=== PATIENT | male | born 1965 | race Caucasian/White ===

== ENCOUNTER 2017-03-11 16:22 | Inpatient (IN) | payer BC, OTHER ==
[~2017-03-11] VITALS: Ht 175.3 cm; Wt 111.1 kg
[2017-03-11 16:25] VITALS: BP 154/87; PULSE 62; RESP 16; TEMP 98.3; O2SAT 97
--- NOTE | 2017-03-11 16:25 | NUR ---
Placed in room 1 . Placed on security monitor, blood pressure machine and pulse oximeter. To gown for exam. Side rails up. Report given to Mary FOSTER.
--- NOTE | 2017-03-11 16:45 | NUR ---
Note siobhan in [facility] - 03/11/17 at 1645 by YOGESH Placed in room 1 . Placed on lastex thread winder, blood pressure machine and pulse oximeter. To gown for exam. Side rails up. Report given to Mary FOSTER.
--- NOTE | 2017-03-11 16:45 | NUR ---
PER PATIENT HE STARTED FEELING PRESSURE ON HIS CHEST A COUPLE OF HOURS AGO WHILE WATCHING.PATIENT STILL COMPLAINING OF PRESSURE ON THE CHEST STATED "I DON'T KNOW IF THIS IS JUST GAS".NO RESPIRATORY DISTRESS.NO COMPLAIN/INJURIES PER PATIENT OR NOTED
--- NOTE | 2017-03-11 16:50 | NUR ---
ER at bedside examining patient.
[2017-03-11 16:59] LABS: BASOPHILS # (AUTO) 0.1 K/uL (0.0-0.2); BASOPHILS % (AUTO) 0.8 % (0.0-2.0); EOSINOPHILS # (AUTO) 0.3 K/uL (0.0-0.4); EOSINOPHILS % (AUTO) 2.9 % (0.0-4.0); HEMATOCRIT 43.2 % (36-54); HEMOGLOBIN 14.2 g/dL (14.0-18.0); LYMPHOCYTES # (AUTO) 2.7 K/uL (1.0-5.5); LYMPHOCYTES % (AUTO) 24.3 % (20.5-51.5); MEAN CORPUSCULAR HEMOGLOBIN 29 pg (27-31); MEAN CORPUSCULAR HGB CONC 33 % (32-36); MEAN CORPUSCULAR VOLUME 88 fL (79.0-98.0); MONOCYTES # (AUTO) 0.9 K/uL (0.0-1.0); MONOCYTES % (AUTO) 7.9 % (1.7-9.3); NEUTROPHILS # (AUTO) 7.2 K/uL (1.8-7.7); NEUTROPHILS % (AUTO) 64.1 % (40.0-70.0); PLATELET COUNT (AUTO) 371 K/uL (130-430); RED BLOOD CELL COUNT(AUTO) 4.89 MIL/uL (4.2-6.2); RED CELL DISTRIBUTION WIDTH 13.2 % (9.0-15.0); WHITE BLOOD COUNT (AUTO) 11.2 K/uL (4.8-10.8)
[2017-03-11] MEDS ORDERED: NITROGLYCERIN 0.4 MG TAB.SUBL SL ONE (17:00)
[2017-03-11] MEDS ORDERED: MAG HYDROX/AL HYDROX/SIMETH 30 ML, LIDOCAINE VISCOUS 2% 15ML (PO) 10 ML, BELLADONNA ALK... PO ONE ×3 (17:00)
[2017-03-11 17:03] LABS: CALCIUM 9.3 mg/dL (8.4-11.0); CREATININE 0.89 mg/dL (0.55-1.30); POTASSIUM 4.1 mmol/L (3.5-5.1)
[2017-03-11 17:05] LABS: PROTHROMBIN TIME 11.2 SECS (9.5-12.5)
[2017-03-11 17:08] LABS: ALBUMIN 3.9 g/dL (3.4-4.8); TOTAL BILIRUBIN 0.3 mg/dL (0.0-1.0); TOTAL PROTEIN, SERUM 7.7 g/dL (6.4-8.3)
--- NOTE | 2017-03-11 17:42 | NUR ---
PATIENT STATED "I FEEL BETTER NOW"
[2017-03-11] MEDS ORDERED: LISI-209 PO (18:11)
[2017-03-11] MEDS ORDERED: ASA81 PO (18:12)
[2017-03-11] MEDS ORDERED: NICO1PAT11 TP (18:13)
[2017-03-11] MEDS ORDERED: TICA90TA PO (18:14)
[2017-03-11] MEDS ORDERED: LIP80 PO (18:15)
--- NOTE | 2017-03-11 19:19 | NUR ---
Report given to KRISTIN Lewis and endorsed all care.
--- NOTE | 2017-03-11 19:25 | NUR ---
Received patient alert,awake and oriented. No acute distress or SOB noted. Denies any pain at this time. Will continue to monitor.
--- NOTE | 2017-03-11 19:35 | NUR ---
ADMIT NOTE Received pt from ER to the floor with a diagnosis of CHEST PAIN. Admission process initiated. patient oriented to pain management, safety and call light-teach back done.
--- NOTE | 2017-03-11 19:40 | NUR ---
Patient will be admitted under the care of Dr. Dillard . Admitted to Telemetry unit. Will go to room 110A. Belongings list completed. Summary report printed. Report will be given at bedside.
--- NOTE | 2017-03-11 19:45 | NUR ---
Initial PM Notes Pt is resting comfortably in bed and denies chest pain or discomfort at this time. Pt's is at the bedside. Plan of care was discussed with pt and his and both verbalized understanding. Fall and safety precautions are in place. Call light is with pt. Bed is in the lowest and locked positions. Pt was instructed to call for assistance as needed and pt verbalized understanding. Will continue to monitor pt.
--- NOTE | 2017-03-11 19:47 | NUR ---
CONSULTATION PAGED REASON FOR CONSULTATION:CHEST PAIN WAS CONSULT CALLED?Y PERSON WHO WAS NOTIFIED:OLY CONSULTING PHYSICIAN:KYRIE ANGELA ([employer]) TEST CELL TECHNICIAN SPECIALTY:CARDIO TEST CELL TECHNICIAN PHONE NUMBER:[phone]
[2017-03-11 20:00] VITALS: BP 130/75; PULSE 57; RESP 18; TEMP 97; O2SAT 96
--- NOTE | 2017-03-11 20:15 | NUR ---
Dr. Dillard Pt was seen by Dr. Dillard.
[2017-03-11] MEDS ORDERED: NITROGLYCERIN 0.4 MG TAB.SUBL SL PRN (20:30)
[2017-03-11] MEDS: METOPROLOL TARTRATE 25 MG TABLET PO SCH (21:00)
--- NOTE | 2017-03-11 22:00 | NUR ---
Rounds Pt is resting comfortably in bed and watching TV. Call light is with pt.
[2017-03-11] MEDS ORDERED: COMMUNICATION ORDER XX ONE (22:45)
--- NOTE | 2017-03-12 | NUR ---
Rounds Pt is sleeping comfortably in bed. Call light is with pt. playground monitor is showing SB with HR in the low 50's.
[2017-03-12 01:40] VITALS: BP 118/60; PULSE 57; RESP 18; TEMP 97.3; O2SAT 96
--- NOTE | 2017-03-12 02:00 | NUR ---
Rounds Pt is resting comfortably in bed. No resp distress noted.
--- NOTE | 2017-03-12 04:00 | NUR ---
Rounds Pt is sleeping comfortably in bed. Call light is with pt.
[2017-03-12 04:58] VITALS: BP 113/70; PULSE 60; RESP 17; TEMP 97.2; O2SAT 98
--- NOTE | 2017-03-12 06:30 | NUR ---
Closing Note Pt is resting comfortably in bed and call light is with pt. All pt's needs were attended to. No fall or injury noted this shift. Will endorse to day shift nurse.
--- NOTE | 2017-03-12 06:45 | NUR ---
Home Medication to Pharmacy Pt's home medication Ticagrelor (Brilinta) 1 bottle was taken to Pharmacy. Receipt is with pt.
[2017-03-12 07:21] LABS: BASOPHILS # (AUTO) 0.1 K/uL (0.0-0.2); BASOPHILS % (AUTO) 0.5 % (0.0-2.0); EOSINOPHILS # (AUTO) 0.3 K/uL (0.0-0.4); EOSINOPHILS % (AUTO) 3.1 % (0.0-4.0); HEMATOCRIT 43.5 % (36-54); HEMOGLOBIN 14.3 g/dL (14.0-18.0); LYMPHOCYTES # (AUTO) 2.1 K/uL (1.0-5.5); LYMPHOCYTES % (AUTO) 18.8 % (20.5-51.5); MEAN CORPUSCULAR HEMOGLOBIN 29 pg (27-31); MEAN CORPUSCULAR HGB CONC 33 % (32-36); MEAN CORPUSCULAR VOLUME 89 fL (79.0-98.0); MONOCYTES # (AUTO) 0.6 K/uL (0.0-1.0); MONOCYTES % (AUTO) 5.6 % (1.7-9.3); NEUTROPHILS # (AUTO) 8.2 K/uL (1.8-7.7); PLATELET COUNT (AUTO) 342 K/uL (130-430); RED BLOOD CELL COUNT(AUTO) 4.88 MIL/uL (4.2-6.2); RED CELL DISTRIBUTION WIDTH 13.3 % (9.0-15.0); WHITE BLOOD COUNT (AUTO) 11.3 K/uL (4.8-10.8)
[2017-03-12 07:26] LABS: ALBUMIN 3.8 g/dL (3.4-4.8); CALCIUM 9.4 mg/dL (8.4-11.0); CREATININE 0.9 mg/dL (0.55-1.30); POTASSIUM 4.1 mmol/L (3.5-5.1); TOTAL BILIRUBIN 0.5 mg/dL (0.0-1.0); TOTAL PROTEIN, SERUM 7.4 g/dL (6.4-8.3)
[2017-03-12 08:00] VITALS: BP 159/92; PULSE 67; RESP 18; TEMP 97.7; O2SAT 96
--- NOTE | 2017-03-12 08:00 | NUR ---
Initial Note Patient A/O x4. Respirations even and unlabored. IV access patent. Denies chest pain at this time. Patient ambulatory with steady gait. Use of call light reviewed with patient. Encouraged patient to call for assistance when needed. Fall and safety precautions in place.
[2017-03-12] MEDS ORDERED: ATORVASTATIN 20 MG TABLET PO SCH (09:00)
[2017-03-12] MEDS ORDERED: LISINOPRIL 5 MG TABLET PO SCH (09:00)
[2017-03-12] MEDS ORDERED: ASPIRIN 81 MG TAB.CHEW PO SCH (09:00)
[2017-03-12] MEDS ORDERED: PANTOPRAZOLE SODIUM 40 MG TAB PO SCH (09:00)
[2017-03-12] MEDS ORDERED: NICOTINE 21 MG/24 HR PATCH.TD24 TD SCH (09:00)
[2017-03-12] MEDS: BRILINTA 90 MG PO SCH ×2 (09:37→20:17)
[2017-03-12] MEDS: METOPROLOL TARTRATE 25 MG TABLET PO SCH ×2 (09:38→20:17)
--- NOTE | 2017-03-12 10:00 | NUR ---
Notes Plan of care reviewed with patient and at bedside.
[2017-03-12 11:32] VITALS: BP 133/71; PULSE 61; RESP 16; TEMP 97.2; O2SAT 94
--- NOTE | 2017-03-12 12:00 | NUR ---
Notes ECHO has been completed in room. No acute distress noted.
--- NOTE | 2017-03-12 12:11 | NUR ---
CONSULT CARDIO UNSTABLE ANGINA DR CM IS [employer] [phone] S/[facility] OFFICE @ [id number]
[2017-03-12 15:31] VITALS: BP 133/66; PULSE 54; RESP 17; TEMP 96.4; O2SAT 96
--- NOTE | 2017-03-12 15:39 | NUR ---
Notes Patient sleeping at this time. at bedside. Encouraged patient's to call for assistance if any is needed.
--- NOTE | 2017-03-12 19:04 | NUR ---
Closing Notes Patient needs met throughout shift. Hourly rounds completed. Will continue to monitor until patient care is endorsed to oncoming shift nurse.
[2017-03-12 20:00] VITALS: BP 140/80; PULSE 66; RESP 16; TEMP 97.1; O2SAT 97
--- NOTE | 2017-03-12 20:00 | NUR ---
PM round Pt awake alert oriented x 4. Clear speech. Pt well aware of current medication and pt requesting to be discharge home. Educated pt that Dr. knight will be doing rounds. at bedside. Pt noted ambulating in the room, steady gait noted. IV noted on the right AC 20g. saline locked. Will continue to monitor
--- NOTE | 2017-03-12 20:32 | NUR ---
MD Rounds Pt was seen by Dr. Mane.
--- NOTE | 2017-03-12 22:21 | NUR ---
D/C Patient Patient given medication reconciliation form and D/C instructions. Exit Care smoking cessation provided. Patient verbalized understanding. MD discussed with patient the results and treatment provided. Ambulatory with steady gait for discharge to home. Patient in stable condition, ID band removed. IV catheter removed, intact and dressing applied, no active bleeding. No Rx of given. Patient educated on pain management. All belongings sent with patient.
--- NOTE | 2017-03-13 13:34 | NUR ---
Discharge Follow Up Phone Call OUTPLACEMENT CONSULTANT phoned patient, , but patient was at the doctor's office and requested a call later. OUTPLACEMENT CONSULTANT phoned patient later. Patient stated he was doing well. He had received diet instructions from his PCP. OUTPLACEMENT CONSULTANT discussed with patient further. Patient will make a follow up appointment with Dr Fournier (cardio) today for two to three weeks as indicated in Dr Fournier's consult notes. Patient had no further questions or concerns.
== END 2017-03-12 22:21 | disposition home or self-care (01) | DRG 392 ==
LOC: SED 16:22 → STU 19:16
PROVIDERS: ATTEND Internal Medicine Hospice and Palliative Medicine
DX: K21.9 Gastro-esophageal reflux disease without esophagitis (principal); I25.110 Atherosclerotic heart disease of native coronary artery with unstable angina pectoris; F17.200 Nicotine dependence, unspecified, uncomplicated; I10 Essential (primary) hypertension; E78.5 Hyperlipidemia, unspecified; E78.00 Pure hypercholesterolemia, unspecified; E66.9 Obesity, unspecified; I25.2 Old myocardial infarction; Z95.5 Presence of coronary angioplasty implant and graft; Z68.36 Body mass index [BMI] 36.0-36.9, adult
CPT/HCPCS: 36415; 71010; 80053; 82550-TC; 83880; 84484; 85025; 85610-TC; 85730-TC; 93005; 93306; 99285; J2001

== ENCOUNTER 2024-02-16 17:00 | Emergency (ER) | payer BC ==
[~2024-02-16] VITALS: Ht 175.3 cm; Wt 104.3 kg
[~2024-02-16 17:00] MED LIST: ASA81 PO; LIP80 PO; LISI-209 PO; TICA90TA PO
[2024-02-16 17:03] VITALS: BP_SYST 171; PULSE 69; RESP 19; TEMP 98; O2SAT 96
[2024-02-16 17:47] LABS: BASOPHILS # (AUTO) 0.1 K/uL (0.0-0.2); BASOPHILS % (AUTO) 0.8 % (0.0-2.0); EOSINOPHILS # (AUTO) 0.1 K/uL (0.0-0.4); HEMATOCRIT 35.8 % (36-54); HEMOGLOBIN 12.4 g/dL (14.0-18.0); LYMPHOCYTES % (AUTO) 26.7 % (20.5-51.5); MEAN CORPUSCULAR HEMOGLOBIN 30 pg (27-31); MEAN CORPUSCULAR HGB CONC 35 % (32-36); MEAN CORPUSCULAR VOLUME 86 fL (79.0-98.0); MONOCYTES # (AUTO) 0.6 K/uL (0.0-1.0); MONOCYTES % (AUTO) 8.5 % (1.7-9.3); NEUTROPHILS # (AUTO) 4.7 K/uL (1.8-7.7); PLATELET COUNT (AUTO) 306 K/uL (130-430); RED BLOOD CELL COUNT(AUTO) 4.15 MIL/uL (4.2-6.2); WHITE BLOOD COUNT (AUTO) 7.5 K/uL (4.8-10.8)
[2024-02-16 17:57] LABS: PROTHROMBIN TIME 9.9 SECS (9.5-12.5)
[2024-02-16 18:02] LABS: ANION GAP 7 (5-15); CARBON DIOXIDE 28 mmol/L (23-29); CHLORIDE 105 mmol/L (98-107); CREATININE 0.97 mg/dL (0.55-1.30); GFR AFRICAN AMERICAN 101 mL/min (>90); GLUCOSE 125 mg/dL (74-106); POTASSIUM 3.9 mmol/L (3.5-5.1); SODIUM SERUM 140 mmol/L (136-145); UREA NITROGEN, BLOOD 15 mg/dL (8-21)
[2024-02-16 18:03] LABS: GFR NON AFRICAN-AMERICAN 84 mL/min (>90)
[2024-02-16] MEDS ORDERED: TOPXL100 PO (18:34)
[2024-02-16] MEDS ORDERED: OLME1TAB92 PO (18:34)
[2024-02-16 18:45] VITALS: BP_SYST 158; PULSE 72; RESP 12; TEMP 98; O2SAT 94
== END 2024-02-16 18:44 | disposition home or self-care (01) ==
LOC: SED 17:00
DX: I16.0 Hypertensive urgency (principal); I10 Essential (primary) hypertension; R42 Dizziness and giddiness; R51.9 Headache, unspecified; E78.5 Hyperlipidemia, unspecified; K21.9 Gastro-esophageal reflux disease without esophagitis; Z79.899 Other long term (current) drug therapy
CPT/HCPCS: 36415; 80048; 83880; 84484; 85025; 85610; 85730; 99283